=== PATIENT | female | born 1975 | race Caucasian/White ===

== ENCOUNTER 2016-09-25 22:44 | Emergency (ER) | payer OTHER ==
[2016-09-25] MEDS ORDERED: DIPH/PERTUSS(ACELL)/TETANUS VAC/PF 0.5 ML SYR (>=10YO) IM ONE (22:50)
[2016-09-25] MEDS ORDERED: HYDROMORPHONE HCL INJ/PF 2 MG/ML AMPULE IV ONE (22:50)
[2016-09-25] MEDS ORDERED: LIDOCAINE 1%/EPINEPHRINE INJ 20 ML VIAL INJ ONE (22:50)
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
[2016-09-26] MEDS ORDERED: HYDROMORPHONE HCL INJ/PF 2 MG/ML AMPULE IV ONE (00:37)
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
--- NOTE | 2016-09-26 00:41 | ER Document Report ---
Doctor's Note Notes: 09/26/16 00:55 Saw this patient to place sutures. Please see Dr. Dominguez' full note. Procedures - Laceration/Wound Repair Left Face Time completed: 00:38 Wound length (cm): 12 Wound's Depth, Shape: Into muscle, Irregular Laceration pre-procedure: Sterile PPE donned, Sterile drapes applied, Shur- Clens applied Anesthetic type: 1% Lidocaine w/epi Wound explored: Clean Irrigated w/ Saline (mLs): 1,000 Wound Repaired With: Sutures Suture Size/Type: 5:0, Nylon Number of Sutures: 13 Layer Closure?: Yes Deep Layer Suture Size/Type: 5:0, Chromic Number Deep Layer Sutures: 10 Post-procedure wound care: Sterile dressing applied Post-procedure NV exam normal: Yes - same as pre-procedural Complications: No Mid- Face Time completed: 00:55 Wound length (cm): 4 Wound's Depth, Shape: Into muscle, Linear, Contused tissue Laceration pre-procedure: Sterile PPE donned, Sterile drapes applied, Shur- Clens applied Anesthetic type: 1% Lidocaine w/epi Wound explored: Clean Irrigated w/ Saline (mLs): 200 Wound Repaired With: Sutures Suture Size/Type: 5:0, Nylon Number of Sutures: 6 Layer Closure?: No Post-procedure wound care: Sterile dressing applied Post-procedure NV exam normal: Yes Complications: No
[2016-09-26] MEDS ORDERED: LIDOCAINE 4%/TETRACAINE 0.5%/EPI 0.18% 5 ML TOPICAL SOLN TOP ONE (01:10)
[2016-09-26] MEDS ORDERED: LIDOCAINE 1%/EPINEPHRINE INJ 20 ML VIAL INJ ONE (01:35)
[2016-09-26] MEDS ORDERED: HYDROCODONE/ACETAMINOPHEN 5-325 MG 6 TAB/DSPK PO PRN (02:19)
[2016-09-26] MEDS ORDERED: HYDROCODONE/ACETAMINOPHEN 5-325 MG TABLET PO ONE (02:19)
[2016-09-26 04:21] VITALS: BP 133/84
== END 2016-09-26 02:39 | disposition home or self-care (01) ==
LOC: ER 22:44 → EDBD 22:44 → ER 09-26 02:39
PROC: 0HQ1XZZ Repair Face Skin, External Approach (ICD-10-PCS; principal; 2016-09-25)
DX: S09.12XA Laceration of muscle and tendon of head, initial encounter (principal); S01.81XA Laceration without foreign body of other part of head, initial encounter; S01.21XA Laceration without foreign body of nose, initial encounter; V03.90XA Pedestrian on foot injured in collision with car, pick-up truck or van, unspecified whether traffic or nontraffic accident, initial encounter; Y93.89 Activity, other specified; M79.631 Pain in right forearm; R51 Headache; M25.522 Pain in left elbow; M89.8X2 Other specified disorders of bone, upper arm
CPT/HCPCS: 12015; 96376; 99285; 90471; 96374; 36415; 82550; 71010; 73502; 73060; 73090; 70450; 72125; 90715; J3490 ×3; J1170 ×2

== ENCOUNTER 2016-09-26 09:15 | Emergency (ER) | payer OTHER ==
[2016-09-26] MEDS ORDERED: NORMAL SALINE 1000 ML 1,000 ML IV ONE (09:58)
[2016-09-26] MEDS ORDERED: ONDANSETRON HCL INJ/PF 4 MG/2 ML SDV IV ONE (09:58)
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
[2016-09-26] MEDS ORDERED: FENTANYL CITRATE INJ/PF 100 MCG/2 ML AMPUL IV ONE (10:58)
[2016-09-26 13:13] VITALS: BP 127/75
== END 2016-09-26 13:11 | disposition home or self-care (01) ==
LOC: ER 09:15
DX: R11.2 Nausea with vomiting, unspecified (principal); S00.90XA Unspecified superficial injury of unspecified part of head, initial encounter; V09.20XA Pedestrian injured in traffic accident involving unspecified motor vehicles, initial encounter
CPT/HCPCS: 99283; 96361; 96374; 96375; 70150; J3010; J2405; J7030

== ENCOUNTER 2017-12-27 09:26 | Emergency (ER) | payer OTHER ==
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
[2017-12-27 11:29] VITALS: BP 131/93
== END 2017-12-27 11:30 | disposition home or self-care (01) ==
LOC: ER 09:26
DX: M54.89 Other dorsalgia (principal); R42 Dizziness and giddiness; V48.5XXA Car driver injured in noncollision transport accident in traffic accident, initial encounter
CPT/HCPCS: 70450; 71046; 72050; 99284

== ENCOUNTER 2020-01-25 23:29 | Emergency (ER) | payer SELFPAY ==
--- NOTE | 2020-01-26 00:04 | ER Document Report ---
ED Cardiac - General TRAVEL OUTSIDE OF THE [place]. IN LAST 30 DAYS: No <INDIO CHAVEZ - Last Filed: 01/26/20 02:15> <AKILAH CHEW - Last Filed: 01/26/20 05:18> - General Chief Complaint: Chest Pain > 30 Stated Complaint: CHEST PAIN Primary Care Provider: ONEYDA IVY MD [ACTIVE STAFF] - Follow up in 3-5 days - [facility] Notes: Patient is a 44-year-old female with a past medical history of hypertension who presents with chest pain and palpitations. Patient states that she was eating dinner in the kitchen when she began to feel palpitations and then a throbbing pain in her chest. She states she also became lightheaded. She called EMS. Patient was given nitro and aspirin in route. She does not think that the medicines helped her pain. She thinks it just went away on its own. She has had the symptoms for several years. She has never seen a family doctor for this. Usually the symptoms just resolve on their own. The chest pain lasts for several seconds before resolving. She does have a history of anxiety. She also reports she has been drinking more energy drinks than normal the past 2 days. Currently, patient is asymptomatic. She is a non-smoker. (IDNIO CHAVEZ) - Related Data Allergies/Adverse Reactions: No Known Allergies Allergy (Unverified 09/26/16 09:34) Past Medical History - General Information source: Patient - Social History Smoking Status: Former Smoker Frequency of alcohol use: None Family History: Reviewed & Not Pertinent - Past Medical History Cardiac Medical History: Reports: Hx Hypertension Renal/ Medical History: Denies: Hx Peritoneal Dialysis <INDIO CHAVEZ - Last Filed: 01/26/20 02:15> Review of Systems <INDIO CHAVEZ - Last Filed: 01/26/20 02:15> - Review of Systems Notes: CONSTITUTIONAL: No fever, fatigue or weight loss. SKIN: No rash. HENT: No congestion, ear pain, or sore throat. EYES: No recent vision problems or eye pain. ENDOCRINE: No thyroid problems. No polyuria or polydipsia. CARDIOVASCULAR: Positive for chest pain and palpitations. RESPIRATORY: No cough, shortness of breath, congestion, or wheezing. GASTROINTESTINAL: No abdominal pain, nausea, vomiting, bloody stools or diarrhea. GENITOURINARY: No dysuria. MUSCULOSKELETAL: No joint pain or swelling. LYMPHATIC: No swollen glands. NEUROLOGIC: No seizures. No headache, focal weakness or sensory changes. HEMATOLOGIC: No unusual bruising or bleeding. PSYCHIATRIC: No depression or anxiety. (INDIO CHAVEZ) Physical Exam - General General appearance: Appears well <INDIO CHAVEZ - Last Filed: 01/26/20 02:15> - Vital signs Vitals: Resp Pulse Ox 17 99 01/25/20 23:30 01/25/20 23:30 - General Notes: VITAL SIGNS: Within normal limits. GENERAL: No acute distress, non-toxic appearance. HEAD: Normal with no signs of head trauma. EYES: EOMI, conjunctiva normal, no discharge. EARS: Hearing grossly intact. NOSE: Normal. NECK: Normal range of motion, no tenderness, supple, no lymphadenopathy, No adenopathy, no JVD. CHEST: Clear breath sounds bilaterally. No wheezes, rales, or rhonchi. CARDIAC: Regular rate and rhythm. S1 and S2, without murmurs, gallops, or rubs. VASCULAR: No Edema. Peripheral pulses normal and equal in all extremities. ABDOMEN: Normal and soft with no tenderness, no masses or pulsatile masses. GENITOURINARY: Normal, No tenderness LYMPATHTIC: No lymphadenopathy noted. MUSCULOSKELETAL: Good range of motion of all major joints. Extremities without clubbing, cyanosis or edema. NEUROLOGICAL: Alert and oriented x 3. No focal sensory or strength deficits. Speech normal. Follows commands appropriately. PSYCHIATRIC: Normal Affect, judgement and mood. SKIN: Normal appearance with no rashes or lesions. (INDIO CHAVEZ) Course - Laboratory Result Diagrams: 01/26/20 00:40 01/26/20 00:40 - Diagnostic Test Radiology reviewed: Image reviewed, Reports reviewed - EKG Interpretation by Me EKG shows normal: Sinus rhythm Rate: Normal Rhythm: NSR When compared to previous EKG there are: Previous EKG unavailable <INDIO CHAVEZ - Last Filed: 01/26/20 02:15> - Laboratory Result Diagrams: 01/26/20 00:40 01/26/20 00:40 <AKILAH CHEW - Last Filed: 01/26/20 05:18> - Re-evaluation Re-evalutation: 01/26/20 00:23 Patient appears well on exam. She states her symptoms are resolved. Patient does not have any risk factors for DVT or PE. Will obtain blood work and chest x-ray. Patient states she does not think the nitro helped her pain at all. She states it went away on its own. Her heart score is 1 PERC/WELLS negative 01/26/20 01:43 01/26/20 01:57 On reassessment, patient is texting on her phone, she is in no acute distress. She has had no return of pain. I did discuss all lab results and work-up with her. I did offer a second troponin and patient agreed. If patient's second troponin is negative and she remains pain-free, she can be discharged home. I did inform her that she needs to follow-up with her family doctor as she may need to wear a Holter monitor. She was also instructed to avoid caffeinated beverages and stay hydrated. Return precautions provided. 01/26/20 02:15 (INDIO CHAVEZ) 01/26/20 04:56 Patient turned over to me pending repeat troponin. Patient's repeat EKG and troponin both negative, patient is PERC negative, patient feels reassured and will follow up with the primary doctor and hard rock drill operator. Patient denied having any other concerns and was in agreement with discharge and follow-up plan. I gave patient extensive return to ED precautions which she demonstrated understanding of. (AKILAH CHEW) - Vital Signs Vital signs: Temp Pulse Resp BP Pulse Ox 98.1 F 71 14 109/74 98 01/25/20 23:38 01/25/20 23:38 01/26/20 02:01 01/26/20 02:01 01/26/20 02:01 - Laboratory Laboratory results interpreted by me: 01/26/20 01/26/20 00:40 00:40 Glucose 126 H Ur Leukocyte Esterase TRACE H - EKG Interpretation by Me Additional EKG results interpreted by me: 01/26/20 00:03 Sinus rhythm at a rate of 66. QTc 407. No acute ST changes. No previous EKG available for comparison. (INDIO CHAVEZ) Discharge <INDIO CHAVEZ - Last Filed: 01/26/20 02:15> <AKILAH CHEW - Last Filed: 01/26/20 05:18> - Discharge Clinical Impression: Palpitations Chest pain Qualifiers: Chest pain type: unspecified Qualified Code(s): R07.9 - Chest pain, unspecified Disposition: HOME, SELF-CARE Instructions: Chest Pain of Unclear Cause ([facility]), Palpitations (Irregular or Rapid Heartrate) ([facility]) Additional Instructions: You may need to wear a Holter monitor. Try to limit your number of energy/caffeinated drinks during the day. Make sure you are staying hydrated with water. Please return to the ER for any return of chest pain trouble breathing dizziness fainting or any other worsening or alarming symptoms. Follow-up with hard rock drill operator and primary doctor within 1 week Referrals: ONEYDA IVY MD [ACTIVE STAFF] - Follow up in 1 week TRACEY STANTON MD [ACTIVE PROVISIONAL STAFF] - Follow up in 1 week
--- NOTE | 2020-01-26 00:16 | EKG REPORT ---
SEVERITY:- BORDERLINE ECG - SINUS RHYTHM PROBABLE LEFT ATRIAL ABNORMALITY : Confirmed by: Migue Cuenca MD 26-Jan-2020 00:16:07
[2020-01-26 01:01] LABS: ABSOLUTE EOSINOPHILS # (AUTO) 0.1 10^3/uL (0.0-0.6); ABSOLUTE LYMPHOCYTES (AUTO) 1.6 10^3/uL (0.5-4.7); ABSOLUTE MONOCYTES (AUTO) 0.6 10^3/uL (0.1-1.4); ABSOLUTE NEUT (AUTO) 4.8 10^3/uL (1.7-8.2); BASOPHILS % (AUTO) 0.5 % (0-2); EOSINOPHILS % (AUTO) 2.1 % (0-6); HEMATOCRIT 37.4 % (36.0-47.0); HEMOGLOBIN 12.9 g/dL (12.0-15.5); LYMPHOCYTES % (AUTO) 22.3 % (13-45); MEAN CORPUSCULAR HEMOGLOBIN 30.9 pg (27.0-33.4); MEAN CORPUSCULAR HGB CONC 34.4 g/dL (32.0-36.0); MEAN CORPUSCULAR VOLUME 90 fl (80-97); MONOCYTES % (AUTO) 8.2 % (3-13); PLATELET COUNT 164 10^3/uL (150-450); RED BLOOD COUNT 4.18 10^6/uL (3.72-5.28); RED CELL DISTRIBUTION WIDTH 13.2 % (11.5-14.0); SEGMENTED NEUTROPHILS % (AUTO) 66.9 % (42-78); TOTAL CELLS COUNTED % (AUTO) 100 %; WHITE BLOOD COUNT 7.2 10^3/uL (4.0-10.5)
--- NOTE | 2020-01-26 01:01 | RADIOLOGY REPORT (SQ) ---
EXAM: XR Chest, 2 Views EXAM DATE/TIME: 01/26/2020 at 12:25 AM CLINICAL HISTORY: The patient is 44 years old and is Female; chest pain TECHNIQUE: Frontal and lateral views of the chest. COMPARISON: Chest radiograph from 12/27/2017 FINDINGS: LUNGS: Unremarkable. No consolidation. PLEURAL SPACE: Unremarkable. No pneumothorax. HEART: No significant enlargement of the cardiac silhouette. MEDIASTINUM: Unremarkable. BONES/JOINTS: No acute osseous findings. IMPRESSION: No acute findings visualized in the chest.
[2020-01-26 01:05] LABS: APPEARANCE,URINE SLIGHTLY-CLOUDY; BILIRUBIN,URINE NEGATIVE (NEGATIVE); COLOR,URINE YELLOW; GLUCOSE, URINE NEGATIVE (NEGATIVE); KETONES,URINE NEGATIVE (NEGATIVE); LEUKOCYTE ESTERASE,URINE TRACE (NEGATIVE); NITRITE,URINE NEGATIVE (NEGATIVE); PROTEIN,URINE NEGATIVE (NEGATIVE); URINE SPECIFIC GRAVITY 1.027; UROBILINOGEN,URINE NEGATIVE mg/dL (<2.0)
[2020-01-26 01:20] LABS: ALBUMIN 4.2 g/dL (3.5-5.0); ALKALINE PHOSPHATASE 65 U/L (38-126); ANION GAP 8 (5-19); ASPARTATE AMINO TRANSFERASE 28 U/L (14-36); BILIRUBIN,DIRECT 0.2 mg/dL (0.0-0.4); BILIRUBIN,TOTAL 0.9 mg/dL (0.2-1.3); BLOOD UREA NITROGEN 15 mg/dL (7-20); CARBON DIOXIDE 26 mmol/L (22-30); CHLORIDE 106 mmol/L (98-107); GLUCOSE 126 mg/dL (75-110); TOTAL PROTEIN 6.7 g/dL (6.3-8.2)
[2020-01-26 05:07] VITALS: BP 125/82
--- NOTE | 2020-01-26 07:16 | EKG REPORT ---
SEVERITY:- BORDERLINE ECG - SINUS BRADYCARDIA. : Confirmed by: Tej Ennis MD 26-Jan-2020 07:15:59
== END 2020-01-26 05:07 | disposition home or self-care (01) ==
LOC: ER 23:29
DX: R07.9 Chest pain, unspecified (principal); R00.2 Palpitations; I10 Essential (primary) hypertension; R42 Dizziness and giddiness; Z87.891 Personal history of nicotine dependence
CPT/HCPCS: 36415; 71046; 80053; 81001; 81025; 83735; 84484; 85025; 87086; 93005; 93010; 99285